=== PATIENT | female | born 1980 | race Caucasian/White ===

== ENCOUNTER 2021-11-26 17:03 | Emergency (ER) | payer OTHER ==
[2021-11-26 17:14] VITALS: BMI 30.2
[2021-11-26] MEDS ORDERED: BEBTELOVIMAB (EUA) 175 MG/2 ML VIAL IVPUSH ONE (17:19)
[2021-11-26] MEDS ORDERED: ALBUTEROL SO4 2.5/IPRATROPIUM 0.5 INH SOL 3 ML VIAL.NEB. NEB ONE ×2 (17:21→18:04)
[2021-11-26 19:32] VITALS: BP 110/79; PULSE 81; TEMP 98
== END 2021-11-26 21:21 | disposition home or self-care (01) ==
LOC: JER 17:03
PROC: 3E0F7GC Introduction of Other Therapeutic Substance into Respiratory Tract, Via Natural or Artificial Opening (ICD-10-PCS; principal; 2021-11-26)
PROC: 3E03329 Introduction of Other Anti-infective into Peripheral Vein, Percutaneous Approach (ICD-10-PCS; 2021-11-26)
DX: U07.1 COVID-19 (principal)
CPT/HCPCS: 71046-TC-FY; 94640; 96374; 99284-25; M0222; Q0222